=== PATIENT | female | born 1980 | race African-American/Black ===

== ENCOUNTER 2016-02-26 20:30 | Emergency (ER) | payer SELFPAY ==
[2016-02-26] MEDS ORDERED: Ketorolac Tromethamine 60 MG/2 ML VIAL ONE (20:53)
--- NOTE | 2016-02-26 21:24 | ERRECORD ---
[facility] EMERGENCY RECORD HPI TOOTHACHE (20:47 BPIC) CHIEF COMPLAINT: Patient presents for evaluation of toothache. HISTORIAN: History provided by patient. LOCATION: Symptoms are localized, most severe to Lower teeth on the left. QUALITY: Pain is dull in nature. SEVERITY: Maximum severity of symptoms severe, Currently symptoms are severe. TIME COURSE: Gradual onset of symptoms, Sx have been much worse in the past few days. ASSOCIATED WITH: Associated with facial pain, No associated facial swelling, No associated fever, No associated trauma. EXACERBATED BY: Patient's condition exacerbated by chewing. RELIEVED BY: Patient's condition relieved by nothing. ROS (20:47 BPIC) CONSTITUTIONAL: Negative constitutional review of systems. EYES: Negative eye review of systems. ENT: Negative ears, nose, throat review of systems. CARDIOVASCULAR: Negative cardiovascular review of systems. RESPIRATORY: Negative respiratory review of systems. GI: Negative gastrointestinal review of systems. MUSCULOSKELETAL: Negative musculoskeletal review of systems. SKIN: Negative skin review of systems. PSYCHIATRIC: Negative psychiatric review of systems. NOTES: All other ROS is negative except as listed in HPI. PAST MEDICAL HISTORY MEDICAL HISTORY: Flu vaccine not up to date, Pneumococcal vaccine not up to date, Tetanus immunization up to date. Reviewed on 01/29/16.VERIFIED -18-17. (21:08 MCRS) FEMALE SURGICAL HISTORY: TUBAL LIGATION. Reviewed on 01/29/16.VERIFIED -18-17. (21:08 MCRS) PSYCHIATRIC HISTORY: Notes: ANXIETY AND DEPRESSION 9OUT OF XANAX0, Notes: DENIES, Notes: VERIFIED08/14/15. Reviewed on 01/29/16.VERIFIED -18-17. (21:08 MCRS) SOCIAL HISTORY: Patient drinks socially, Patient denies drug use, Patient currently uses tobacco, smokes cigarettes, FORMER DRUG ABUSER; COCAINE Patient has smoked for 20 years, Patient smokes 1 pack per day, Patient drinks socially, once a month, Patient denies drug use, Patient currently uses tobacco, smokes cigarettes, Lives at home, with family. VERIFIED 11/04/15. Reviewed on 01/29/16.VERIFIED 1-18-17. (21:08 MCRS) FAMILY HISTORY: Family istory is not significant. (21:08 MCRS) NOTES: I have reviewed and agree with the PMH/PSxH/FamHx/SocHx obtained by the nurse. (20:47 BPIC) &a-1R&a+25V*p+0X*j8396S*c202B*c15G*c2P*p-0X&a-25V&a+1R Name: Carina Chamorro : 1980 F35 MedRec: [id number] AcctNum: [id number] Prepared: WedFeb 26, 2016 21:22 by Interface Page 1 of 3 pMD [facility] EMERGENCY RECORD KNOWN ALLERGIES traMADol: Reaction: Rash, Severity: Moderate, Source: Patient CURRENT MEDICATIONS (20:39 MCRS) ALPRAZolam: TABLET : Strength - 2 mg : ORAL Patient Dose: 2 mg Oral 2 times a day.Last Taken: 02/26/2016 1700. VITAL SIGNS (20:34 MCRS) VITAL SIGNS: BP: 111/62 (Sitting), Pulse: 68, Resp: 18, Temp: 96.9 (Tympanic), Pain: 9 (Sharp), O2 sat: 100 on Room Air, Time: 02/26/2016 20:34. PHYSICAL EXAM (20:47 BPIC) CONSTITUTIONAL: Vital signs reviewed, Patient afebrile, Pulse normal, Blood pressure normal, Respiratory rate normal, Patient appears non toxic, Patient appears pain free, Patient alert and oriented to person, place and time. HEAD: Head exam included findings of head atraumatic, normocephalic. EYES: Eye exam included findings of eyelids normal to inspection, Pupils equally round and reactive to light, Extraocular muscles intact. ENT: ENT exam normal, Nose exam normal, Pharynx exam normal, Uvula exam normal, Teeth with, dental caries, no fractures, no abscess. NECK: Neck exam included findings of normal range of motion, Trachea midline. RESPIRATORY CHEST: Respiratory exam included findings of no respiratory distress, Breath sounds clear, Chest exam included findings of chest movement symmetrical, Chest expansion equal. CARDIOVASCULAR: Cardiovascular exam included findings of heart rate regular rate and rhythm, Heart sounds normal. NEURO: Neuro exam findings include patient oriented to person, place and time, Speech normal. PSYCHIATRIC: Psychiatric exam included findings of patient oriented to person place and time, Normal affect. MEDICATION ADMINISTRATION SUMMARY Drug Name: ketorolac intramuscular, Dose Ordered: 60 mg, Route: Intramuscular, Status: Given, Time: 20:55 02/26/2016, Detailed record available in Medication Service section. DOCTOR NOTES (20:47 BPIC) TEXT: Pt with dental caries and evidence of poor oral care. Explained the importance of preventative dental care and the need for definitive treatment with a dentist. &a-1R&a+25V*p+0X*i8632J*c202B*c15G*c2P*p-0X&a-25V&a+1R Name: Carina Chamorro : 1980 [facility] MedRec: [id number] AcctNum: [id number] Prepared: WedFeb 26, 2016 21:22 by Interface Page 2 of 3 pMD [facility] EMERGENCY RECORD PROBLEM LIST No recorded problems DIAGNOSIS (20:48 BPIC) FINAL: PRIMARY: dental pain. PRESCRIPTION (20:48 BPIC) Pen-Vee K: TABLET : 500 mg : ORAL : Quantity: 500 Unit: mg Route: ORAL Schedule: 3 times a day Dispense: 21 May substitute. Refills: No Refills . NOTES: No Refills. DISPOSITION PATIENT: Disposition Type: Discharge, Disposition: *Discharge Home. (20:48 BPIC) Patient left the department. (21:11 MDEB) Laurent: BPIC=MD Todd, Jose Roberto MCRS=CHEMO Balderas, Oleg GALEANOEB=CHEMO Jones, Nellie &a-1R&a+25V*p+0X*i4995M*c202B*c15G*c2P*p-0X&a-25V&a+1R Name: Carina Chamorro : 1980 3 MedRec: [id number] AcctNum: [id number] Prepared: WedFeb 26, 2016 21:22 by Interface Page 3 of 3 pMD [facility]
--- NOTE | 2016-02-26 21:27 | PICIS ---
[facility] EMERGENCY RECORD TRIAGE (WedFeb 26, 2016 20:37 MCRS) TRIAGE NOTES: COMPLAINT OF TOOTH PAIN. (WedFeb 26, 2016 20:37 MCRS) PATIENT: NAME: Carina Chamorro, AGE: 35, GENDER: female, : Wed1980, TIME OF GREET: WedFeb 26, 2016 20:31, PREFERRED LANGUAGE: [place]ian, ETHNICITY: Not or , FALL RISK: NO, ECODE BILLING MAP: [facility], SSN: [id number], Zip Code: [address], KG WEIGHT: 62.60, PHONE: , , , PERSON ID: [id number], PCP: MD Soriano Olayemi. (WedFeb 26, 2016 20:37 MCRS) COMPLAINT: TOOTH PAINS. (WedFeb 26, 2016 20:37 MCRS) ADMISSION: URGENCY: 4 Non Urgent, ADMISSION SOURCE: Home, TRANSPORT: CAR, BED: ED -04. (WedFeb 26, 2016 20:37 MCRS) ASSESSMENT: Assessment: COMPLAINT OF TOOTH PAIN, Symptoms began 1 YEAR. (21:08 MCRS) PAIN: Patient complains of pain described as, sharp, Pain is constant, Aggravating factors:, Pain exacerbated by heat, Pain exacerbated by cold, No relieving factors. (21:08 MCRS) IMMUNIZATIONS: Notes: ALIEVE AT 1700. (21:08 MCRS) SIRS SCORING: Heart Rate 55-109 (0), Temp range 96.8-101.1 (0), respiratory rate 12-24 (0), Mental Status altered: no (0). (21:08 MCRS) PROVIDERS: TRIAGE NURSE: Oleg Balderas RN. (WedFeb 26, 2016 20:37 MCRS) VITAL SIGNS: BP 111/62, (Sitting), Pulse 68, Resp 18, Temp 96.9, (Tympanic), Pain 9, (Sharp), O2 Sat 100, on Room Air, Time 02/26/2016 20:34. (20:34 MCRS) PREVIOUS VISIT ALLERGIES: traMADol. (WedFeb 26, 2016 20:37 MCRS) traMADol. (21:08 MCRS) KNOWN ALLERGIES traMADol: Reaction: Rash, Severity: Moderate, Source: Patient CURRENT MEDICATIONS (20:39 MCRS) ALPRAZolam: TABLET : Strength - 2 mg : ORAL Patient Dose: 2 mg Oral 2 times a day.Last Taken: 02/26/2016 1700. VITAL SIGNS (20:34 MCRS) VITAL SIGNS: BP: 111/62 (Sitting), Pulse: 68, Resp: 18, Temp: 96.9 (Tympanic), Pain: 9 (Sharp), O2 sat: 100 on Room Air, Time: 02/26/2016 20:34. NURSING ASSESSMENT: DENTAL (21:08 MCRS) CONSTITUTIONAL: Patient arrives ambulatory, Gait steady, History obtained from patient, Patient appears comfortable, Patient cooperative, Patient alert, Oriented to person, place and time, Skin warm, Skin dry, Skin normal in color, Mucous membranes pink, Mucous &a-1R&a+25V*p+0X*x6494J*c202B*c15G*c2P*p-0X&a-25V&a+1R Name: Carina Chamorro : 1980 F35 MedRec: [id number] AcctNum: [id number] Prepared: WedFeb 26, 2016 21:21 by Interface Page 1 of 5 pMD [facility] EMERGENCY RECORD membranes moist, Patient is well-groomed, Patient complains of TOOTH PAIN. PAIN: sharp pain, to left lower back tooth (teeth), Onset of pain 1 YEAR AGO, on a scale 0-10 patient rates pain as 7, Pain exacerbated by, exposure to water, HOT OR COLD. NONVERBAL PAIN: Non Verbal pain assessment findings include: Non-verbal expressions of pain at rest (1), Result: 1. DENTAL: Dental assessment findings include mouth normal, Teeth abnormal:, color change to secondary tooth (teeth), Notes: GUMS APPEARS REDDENED AT TOOTH THAT HURTS - TOOTH APPEARS DETERIORATED ENAMEL. SAFETY: Side rails up, Cart/Stretcher in lowest position, Family at bedside, Call light within reach, Hospital ID band on. NURSING PROCEDURE: DISCHARGE NOTE (21:08 MDEB) DISCHARGE: Patient discharged to home, ambulating without assistance, driving self, unaccompanied, Summary of Care printed/ provided, Patient requested and was provided an electronic copy of Discharge Instructions, Transition record given to patient, Discharge instructions given to patient, Simple or moderate discharge teaching performed, MEDICATION, Prescriptions given and instructions on side effects given, Above person(s) verbalized understanding of discharge instructions and follow-up care, Patient treated and evaluated by physician. BELONGINGS: Belongings remain with patient, Valuables remain with patient. NOTES: Emotional support needed and given, Patient tolerated procedure well. SAFETY: Side rails up, Cart/Stretcher in lowest position, Family at bedside, Call light within reach, Hospital ID band on. MEDICATION ADMINISTRATION SUMMARY Drug Name: ketorolac intramuscular, Dose Ordered: 60 mg, Route: Intramuscular, Status: Given, Time: 20:55 02/26/2016, Detailed record available in Medication Service section. MEDICATION SERVICE (20:55 BPIC) ketorolac intramuscular: Order: ketorolac intramuscular (ketorolac tromethamine) - Dose: 60 mg : Intramuscular Ordered by: Jose Roberto Brooks MD Entered by: Jose Roberto Brooks MD WedFeb 26, 2016 20:47 , Acknowledged by: Nellie Jones RN WedFeb 26, 2016 20:52 Documented as given by: Nellie Jones RN WedFeb 26, 2016 20:55 Patient, Medication, Dose, Route and Time verified prior to administration. IM medication, Amount given: 60 MG, Medication administered to left hip, Correct patient, time, route, dose and medication confirmed prior to administration, Patient advised of actions and side-effects &a-1R&a+25V*p+0X*b7193I*c202B*c15G*c2P*p-0X&a-25V&a+1R Name: Carina Chamorro : 1980 F35 MedRec: [id number] AcctNum: [id number] Prepared: WedFeb 26, 2016 21:21 by Interface Page 2 of 5 pMD [facility] EMERGENCY RECORD prior to administration, Allergies confirmed and medications reviewed prior to administration, Patient in position of comfort, Side rails up, Cart in lowest position. HPI TOOTHACHE (20:47 BPIC) CHIEF COMPLAINT: Patient presents for evaluation of toothache. HISTORIAN: History provided by patient. LOCATION: Symptoms are localized, most severe to Lower teeth on the left. QUALITY: Pain is dull in nature. SEVERITY: Maximum severity of symptoms severe, Currently symptoms are severe. TIME COURSE: Gradual onset of symptoms, Sx have been much worse in the past few days. ASSOCIATED WITH: Associated with facial pain, No associated facial swelling, No associated fever, No associated trauma. EXACERBATED BY: Patient's condition exacerbated by chewing. RELIEVED BY: Patient's condition relieved by nothing. ROS (20:47 BPIC) CONSTITUTIONAL: Negative constitutional review of systems. EYES: Negative eye review of systems. ENT: Negative ears, nose, throat review of systems. CARDIOVASCULAR: Negative cardiovascular review of systems. RESPIRATORY: Negative respiratory review of systems. GI: Negative gastrointestinal review of systems. MUSCULOSKELETAL: Negative musculoskeletal review of systems. SKIN: Negative skin review of systems. PSYCHIATRIC: Negative psychiatric review of systems. NOTES: All other ROS is negative except as listed in HPI. PAST MEDICAL HISTORY MEDICAL HISTORY: Flu vaccine not up to date, Pneumococcal vaccine not up to date, Tetanus immunization up to date. Reviewed on 01/29/16.VERIFIED 02-26-16. (21:08 MCRS) FEMALE SURGICAL HISTORY: TUBAL LIGATION. Reviewed on 01/29/16.VERIFIED 02-25-. (21:08 MCRS) PSYCHIATRIC HISTORY: Notes: ANXIETY AND DEPRESSION 9OUT OF XANAX0, Notes: DENIES, Notes: VERIFIED08/14/15. Reviewed on 01/29/16.VERIFIED 02-25-. (21:08 MCRS) SOCIAL HISTORY: Patient drinks socially, Patient denies drug use, Patient currently uses tobacco, smokes cigarettes, FORMER DRUG ABUSER; COCAINE Patient has smoked for 20 years, Patient smokes 1 pack per day, Patient drinks socially, once a month, Patient denies drug use, Patient currently uses tobacco, smokes cigarettes, Lives at home, with family. VERIFIED 11/04/15. Reviewed on 01/29/16.VERIFIED 02-26-16. (21:08 MCRS) &a-1R&a+25V*p+0X*u0506F*c202B*c15G*c2P*p-0X&a-25V&a+1R Name: Carina Chamorro : 1980 F35 MedRec: [id number] AcctNum: [id number] Prepared: WedFeb 26, 2016 21:21 by Interface Page 3 of 5 pMD [facility] EMERGENCY RECORD FAMILY HISTORY: Family istory is not significant. (21:08 MCRS) NOTES: I have reviewed and agree with the PMH/PSxH/FamHx/SocHx obtained by the nurse. (20:47 BPIC) PHYSICAL EXAM (20:47 BPIC) CONSTITUTIONAL: Vital signs reviewed, Patient afebrile, Pulse normal, Blood pressure normal, Respiratory rate normal, Patient appears non toxic, Patient appears pain free, Patient alert and oriented to person, place and time. HEAD: Head exam included findings of head atraumatic, normocephalic. EYES: Eye exam included findings of eyelids normal to inspection, Pupils equally round and reactive to light, Extraocular muscles intact. ENT: ENT exam normal, Nose exam normal, Pharynx exam normal, Uvula exam normal, Teeth with, dental caries, no fractures, no abscess. NECK: Neck exam included findings of normal range of motion, Trachea midline. RESPIRATORY CHEST: Respiratory exam included findings of no respiratory distress, Breath sounds clear, Chest exam included findings of chest movement symmetrical, Chest expansion equal. CARDIOVASCULAR: Cardiovascular exam included findings of heart rate regular rate and rhythm, Heart sounds normal. NEURO: Neuro exam findings include patient oriented to person, place and time, Speech normal. PSYCHIATRIC: Psychiatric exam included findings of patient oriented to person place and time, Normal affect. EVENTS TRANSFER: Triage to Emergency Main ED -04. (20:37 MCRS) Removed from Emergency Main ED -04. (21:11 MDEB) DOCTOR NOTES (20:47 BPIC) TEXT: Pt with dental caries and evidence of poor oral care. Explained the importance of preventative dental care and the need for definitive treatment with a dentist. PROBLEM LIST No recorded problems DIAGNOSIS (20:48 BPIC) FINAL: PRIMARY: dental pain. DISPOSITION PATIENT: Disposition Type: Discharge, Disposition: *Discharge Home. (20:48 BPIC) Patient left the department. (21:11 MDEB) &a-1R&a+25V*p+0X*a0535R*c202B*c15G*c2P*p-0X&a-25V&a+1R Name: Carina Chamorro : 1980 F35 MedRec: [id number] AcctNum: [id number] Prepared: WedFeb 26, 2016 21:21 by Interface Page 4 of 5 pMD [facility] EMERGENCY RECORD INSTRUCTION (20:49 BPIC) DISCHARGE: DENTAL PAIN. FOLLOWUP: MD Christie, [facility], Family Practice, [address], [facility] [address], , [facility], Dental, Dentistry, [address] [address], , Barbara CAO, DAT, Dentistry, [address] [address], [phone]. SPECIAL: Thank you for [facility] for your care today! Please follow up with your doctor in the next 2-3 days. Return to the emergency department with any emergent or worsening concerns. God Bless you!. PRESCRIPTION (20:48 BPIC) Pen-Vee K: TABLET : 500 mg : ORAL : Quantity: 500 Unit: mg Route: ORAL Schedule: 3 times a day Dispense: 21 May substitute. Refills: No Refills . NOTES: No Refills. IMAGING (21:09 IMELDA) *DISCHARGE INSTRUCTIONS RECEIPT: Image captured from scanner. *SUPPLY CHARGE SHEET: Image captured from scanner. ADMIN (21:15 BPIC) DIGITAL SIGNATURE: MD Brooks Bryan. Laurent: BPIC=MD Brooks Bryan MCRS=CHEMO Balderas, Oleg MDEB=CHEMO Jones, Nellie &a-1R&a+25V*p+0X*r2887Z*c202B*c15G*c2P*p-0X&a-25V&a+1R Name: Carina Chamorro : 1980 F35 MedRec: [id number] AcctNum: [id number] Prepared: WedFeb 26, 2016 21:21 by Interface Page 5 of 5 pMD [facility]
== END 2016-02-26 21:08 | disposition home or self-care (01) ==
LOC: MADERS 20:30
DX: K08.89 Other specified disorders of teeth and supporting structures (principal); F41.9 Anxiety disorder, unspecified; F32.9 Major depressive disorder, single episode, unspecified; F17.210 Nicotine dependence, cigarettes, uncomplicated
CPT/HCPCS: 96372; J1885

== ENCOUNTER 2016-03-01 14:39 | Emergency (ER) | payer SELFPAY ==
--- NOTE | 2016-03-01 15:46 | ERRECORD ---
[facility] EMERGENCY RECORD HPI TOOTHACHE (15:09 LLDO) CHIEF COMPLAINT: Patient presents for evaluation of toothache, Patient presents for evaluation of was here on . given pcn but nothing for pain and is now asking for something to help get her to her 1300 tomorrow. HISTORIAN: History provided by patient. LOCATION: Symptoms are localized. QUALITY: Pain is dull in nature, described as aching. SEVERITY: Maximum severity of symptoms severe, Currently symptoms are moderate. TIME COURSE: Sudden onset of symptoms, There has been no change in the patient's symptoms over time. ASSOCIATED WITH: Associated with facial pain, Associated with facial swelling. EXACERBATED BY: Patient's condition exacerbated by chewing, Patient's condition exacerbated by cold fluids, Patient's condition exacerbated by hot fluids. RELIEVED BY: Patient's condition relieved by nothing. ROS CONSTITUTIONAL: Negative constitutional review of systems. (15:13 LLDO) EYES: Negative eye review of systems, Historian denies eye pain, denies eye redness, denies eye discharge. (15:14 LLDO) ENT: SEVERE DENTAL PAIN. (15:13 LLDO) MUSCULOSKELETAL: Negative musculoskeletal review of systems, Historian denies arthralgias, denies back pain, denies injury, denies myalgias, denies neck pain. (15:14 LLDO) SKIN: Negative skin review of systems, Historian denies cellulitis, denies rash, denies skin changes, denies skin lesions. (15:14 LLDO) NEUROLOGIC: Negative neurologic review of systems, Historian denies confusion, denies dizziness, denies focal weakness, denies mental status changes. (15:14 LLDO) HEMO/LYMPHATIC: Normal hematologic/lymphatic system review, Historian denies abnormal blood clotting, denies gum bleeding, denies petechiae. (15:14 LLDO) ALLERGIC/IMMUNOLOGIC: Normal allergy/immunologic system review, Historian denies eczema, denies environmental allergies, denies food allergies. (15:14 LLDO) PSYCHIATRIC: Negative psychiatric review of systems, Historian denies alcohol abuse, denies anxiety, denies depression, denies drug abuse, denies hallucinations. (15:14 LLDO) NOTES: All systems reviewed, negative except as described above. (15:13 LLDO) PAST MEDICAL HISTORY MEDICAL HISTORY: Flu vaccine not up to date, Pneumococcal vaccine not up to date, Tetanus immunization up to date. Reviewed on 01/29/16.VERIFIED 02-26-16. (14:49 CJEF) &a-1R&a+25V*p+0X*t2008X*c202B*c15G*c2P*p-0X&a-25V&a+1R Name: Carina Chamorro : 1980 F35 MedRec: [id number] AcctNum: [id number] Prepared: WedMar 02, 2016 05:43 by Interface Page 1 of 3 pMD [facility] EMERGENCY RECORD FEMALE SURGICAL HISTORY: TUBAL LIGATION. Reviewed on 01/29/16.VERIFIED 02-26-16. (14:49 CJEF) PSYCHIATRIC HISTORY: Notes: ANXIETY AND DEPRESSION 9OUT OF XANAX0, Notes: DENIES, Notes: VERIFIED08/14/15. Reviewed on 01/29/16.VERIFIED 02-26-16. (14:49 CJEF) SOCIAL HISTORY: Patient drinks socially, Patient denies drug use, Patient currently uses tobacco, smokes cigarettes, FORMER DRUG ABUSER; COCAINE Patient has smoked for 20 years, Patient smokes 1 pack per day, Patient drinks socially, once a month, Patient denies drug use, Patient currently uses tobacco, smokes cigarettes, Lives at home, with family. VERIFIED 11/04/15. Reviewed on 01/29/16.VERIFIED 02-26-16. (14:49 CJEF) FAMILY HISTORY: Family istory is not significant. (14:49 CJEF) NOTES: Nursing records reviewed, Agree with nursing records, Medication list reviewed. (15:14 LLDO) KNOWN ALLERGIES traMADol: Reaction: Rash, Severity: Moderate, Source: Patient CURRENT MEDICATIONS (14:48 CJEF) ALPRAZolam: TABLET : Strength - 2 mg : ORAL Patient Dose: 2 mg Oral 2 times a day. VITAL SIGNS (14:44 CJEF) VITAL SIGNS: BP: 132/76, Pulse: 72, Resp: 18, Temp: 98.6 (Oral), Pain: 8, O2 sat: 100 on Room Air, Time: 03/01/2016 14:44. PHYSICAL EXAM CONSTITUTIONAL: Vital signs reviewed, Patient afebrile, Pulse normal, Blood pressure normal, Respiratory rate normal, Patient appears non toxic, Patient appears in pain, in moderate pain distress, INTERMITTENTLY SEVERE, Patient alert and oriented to person, place and time. (15:13 LLDO) HEAD: Head exam normal, Head exam included findings of head atraumatic, normocephalic. (15:14 LLDO) EYES: Eye exam normal, Eye exam included findings of eyelids normal to inspection, Pupils equally round and reactive to light, Extraocular muscles intact. (15:14 LLDO) ENT: Teeth with, dental caries, fractures, abscess. (15:13 LLDO) NECK: Neck exam normal, Neck exam included findings of normal range of motion, Trachea midline, no meningeal signs, no tenderness. (15:14 LLDO) BACK: Back exam normal, Back exam included findings of normal inspection, range of motion normal. (15:14 LLDO) UPPER EXTREMITY: Upper extremity exam normal, Upper extremity exam included findings of inspection normal, Range of motion normal. &a-1R&a+25V*p+0X*c2307R*c202B*c15G*c2P*p-0X&a-25V&a+1R Name: Carina Chamorro : 1980 F35 MedRec: [id number] AcctNum: [id number] Prepared: WedMar 02, 2016 05:43 by Interface Page 2 of 3 pMD [facility] EMERGENCY RECORD (15:14 LLDO) LOWER EXTREMITY: Lower extremity exam normal, Lower extremity exam included findings of inspection normal, Range of motion normal. (15:14 LLDO) NEURO: Neuro exam normal, Neuro exam findings include patient oriented to person, place and time, Speech normal, Edsirae coma scale 15. (15:14 LLDO) SKIN: Skin exam normal, Skin exam included findings of skin warm, dry, and normal in color, no rash. (15:14 LLDO) PSYCHIATRIC: Psychiatric exam normal, Psychiatric exam included findings of patient oriented to person place and time, Normal affect. (15:14 LLDO) PROBLEM LIST No recorded problems DIAGNOSIS (15:16 LLDO) FINAL: PRIMARY: dental abscess. PRESCRIPTION (15:17 LLDO) Tylenol-Codeine #3: TABLET : 300 mg-30 mg : ORAL : Quantity: 1-2 Unit: tab(s) Route: ORAL Schedule: every 4 hours prn Dispense: 12 Unit: tab(s) May substitute. Refills: No Refills POTENTIAL ALLERGY REACTION: 'traMADol [tramadol/tramadol HCl]' Override Rationale: Reviewed with patient, pt says can safely take this med. NOTES: No Refills. DISPOSITION PATIENT: Disposition Type: Discharge, Disposition: *Discharge Home. (15:16 ANAYELI) Patient left the department. (15:38 SARA) Laurent: SARA=CHEMO Tan, Mira LLDO=MD Mei, Cornell &a-1R&a+25V*p+0X*n6406L*c202B*c15G*c2P*p-0X&a-25V&a+1R Name: ChamorroCarina : 1980 F35 MedRec: [id number] AcctNum: [id number] Prepared: WedMar 02, 2016 05:43 by Interface Page 3 of 3 pMD MTDD
--- NOTE | 2016-03-01 15:58 | PICIS ---
[facility] EMERGENCY RECORD TRIAGE (Amery Mar 01, 2016 14:48 CJEF) TRIAGE NOTES: PT REPORTS THAT SHE WAS SEEN HERE SEVERALS DAYS AGO FOR THE SAME SYMPTOMS AND WAS PRESCRIBED PCN. PT STATES THAT SHE FILLED A PRIOR PRESCRIPTION OF IBU 800MG FOR YET ANOTHER ER VISIT. PT REPORTS THAT SHE HAS A HOLE IN ONE OF HER TEETH ON THE LEFT BOTTOM. PT REPORTS PAIN TO THE LEFT LOWER JAW THAT STARTED APPROX 1 WEEK AGO. PT STATES THAT SHE HAS A DENTIST APPOINTMENT TOMORROW AT 1PM AND STATES THAT SHE IS WANTING A SHOT TO GET HER THROUGH THE NIGHT. (Amery Mar 01, 2016 14:48 CJEF) PATIENT: NAME: Carina Chamorro, AGE: 35, GENDER: female, : Wed1980, TIME OF GREET: WedMar 01, 2016 14:39, PREFERRED LANGUAGE: Mauritanian, ETHNICITY: Not or , FALL RISK: NO, ECODE BILLING MAP: [facility], SSN: [id number], Zip Code: [address], KG WEIGHT: 62.60, PHONE: , , , PERSON ID: [id number], PCP: MD Soriano Olayemi. (Amery Mar 01, 2016 14:48 CJEF) COMPLAINT: TOOTH PAIN. (Amery Mar 01, 2016 14:48 CJEF) ADMISSION: URGENCY: 4 Non Urgent, ADMISSION SOURCE: Home, TRANSPORT: Walk-in, BED: TRIAGE. (Amery Mar 01, 2016 14:48 CJEF) ASSESSMENT: Assessment: LEFT LOWER TOOTH PAIN. (14:49 CJEF) PAIN: Patient complains of pain described as, Location LEFT LOWER JAW. (14:49 CJEF) IMMUNIZATIONS: Flu vaccine not up to date, Tetanus immunization up to date, Pneumococcal vaccine not up to date. (14:49 CJEF) SIRS SCORING: Heart Rate 55-109 (0), Temp range 96.8-101.1 (0), respiratory rate 12-24 (0), Mental Status altered: no (0), Yes, Infection or Suspected Infection. (14:49 CJEF) SIRS NOTIFICATION: Yes, Infection or Suspected Infection. (14:49 CJEF) TRIAGE SCREENING: Patient denies suicidal ideation, Patient denies presence of domestic violence. (14:49 CJEF) PROVIDERS: TRIAGE NURSE: Mira Tan RN. (Amery Mar 01, 2016 14:48 CJEF) VITAL SIGNS: BP 132/76, Pulse 72, Resp 18, Temp 98.6, (Oral), Pain 8, O2 Sat 100, on Room Air, Time 03/01/2016 14:44. (14:44 CJEF) PREVIOUS VISIT ALLERGIES: traMADol. (Amery Mar 01, 2016 14:48 CJEF) traMADol. (14:49 CJEF) KNOWN ALLERGIES traMADol: Reaction: Rash, Severity: Moderate, Source: Patient CURRENT MEDICATIONS (14:48 CJEF) ALPRAZolam: TABLET : Strength - 2 mg : ORAL Patient Dose: 2 mg Oral 2 times a day. VITAL SIGNS (14:44 CJEF) VITAL SIGNS: BP: 132/76, Pulse: 72, Resp: 18, Temp: 98.6 (Oral), Pain: 8, O2 sat: 100 on Room Air, Time: 03/01/2016 14:44. &a-1R&a+25V*p+0X*g6726F*c202B*c15G*c2P*p-0X&a-25V&a+1R Name: Carina Chamorro : 1980 F35 MedRec: [id number] AcctNum: [id number] Prepared: [facility] Mar 02, 2016 05:49 by Interface Page [address] [facility] EMERGENCY RECORD NURSING ASSESSMENT: DENTAL (14:49 CJEF) CONSTITUTIONAL: Complex assessment performed, Patient arrives ambulatory, Gait steady, History obtained from patient, Patient appears comfortable, Patient cooperative, Patient alert, Oriented to person, place and time, Skin warm, Skin dry, Skin normal in color, Mucous membranes pink, Mucous membranes moist, Patient is well-groomed, PT REPORTS THAT SHE WAS SEEN HERE SEVERALS DAYS AGO FOR THE SAME SYMPTOMS AND WAS PRESCRIBED PCN. PT STATES THAT SHE FILLED A PRIOR PRESCRIPTION OF IBU 800MG FOR YET ANOTHER ER VISIT. PT REPORTS THAT SHE HAS A HOLE IN ONE OF HER TEETH ON THE LEFT BOTTOM. PT REPORTS PAIN TO THE LEFT LOWER JAW THAT STARTED APPROX 1 WEEK AGO. PT STATES THAT SHE HAS A DENTIST APPOINTMENT TOMORROW AT 1PM AND STATES THAT SHE IS WANTING A SHOT TO GET HER THROUGH THE NIGHT. PAIN: aching pain, to left lower back tooth (teeth), on a scale 0-10 patient rates pain as 8. DENTAL: Dental assessment findings include mouth normal, Teeth abnormal:, Notes: LEFT LOWER TOOTH PAIN AND LARGE HOLE IN TOOTH. NOTES: Patient tolerated procedure well. SAFETY: Side rails up, Cart/Stretcher in lowest position, Family at bedside, Call light within reach, Hospital ID band on. NURSING PROCEDURE: DISCHARGE NOTE (15:37 [facility]) DISCHARGE: Patient discharged to home, ambulating without assistance, driving self, accompanied by other family member, Summary of Care printed/ provided, Patient requested and was provided an electronic copy of Discharge Instructions, Transition record given to patient, Discharge instructions given to patient, Simple or moderate discharge teaching performed, Prescriptions given and instructions on side effects given, Medication reconciliation form given, Above person(s) verbalized understanding of discharge instructions and follow-up care, Patient treated and evaluated by physician. BELONGINGS: Belongings remain with patient. NOTES: Patient tolerated procedure well. SAFETY: Side rails up, Cart/Stretcher in lowest position, Family at bedside, Call light within reach, Hospital ID band on. HPI TOOTHACHE (15:09 LLDO) CHIEF COMPLAINT: Patient presents for evaluation of toothache, Patient presents for evaluation of was here on . given pcn but nothing for pain and is now asking for something to help get her to her 1300 tomorrow. HISTORIAN: History provided by patient. LOCATION: Symptoms are localized. QUALITY: Pain is dull in nature, described as aching. SEVERITY: Maximum severity of symptoms severe, Currently symptoms are moderate. TIME COURSE: Sudden onset of symptoms, There has been no change in the patient's symptoms over time. ASSOCIATED WITH: Associated &a-1R&a+25V*p+0X*f1030B*c202B*c15G*c2P*p-0X&a-25V&a+1R Name: Carina Chamorro : 1980 F35 MedRec: [id number] AcctNum: [id number] Prepared: WedMar 02, 2016 05:49 by Interface Page [address] [facility] EMERGENCY RECORD with facial pain, Associated with facial swelling. EXACERBATED BY: Patient's condition exacerbated by chewing, Patient's condition exacerbated by cold fluids, Patient's condition exacerbated by hot fluids. RELIEVED BY: Patient's condition relieved by nothing. ROS CONSTITUTIONAL: Negative constitutional review of systems. (15:13 LLDO) EYES: Negative eye review of systems, Historian denies eye pain, denies eye redness, denies eye discharge. (15:14 LLDO) ENT: SEVERE DENTAL PAIN. (15:13 LLDO) MUSCULOSKELETAL: Negative musculoskeletal review of systems, Historian denies arthralgias, denies back pain, denies injury, denies myalgias, denies neck pain. (15:14 LLDO) SKIN: Negative skin review of systems, Historian denies cellulitis, denies rash, denies skin changes, denies skin lesions. (15:14 LLDO) NEUROLOGIC: Negative neurologic review of systems, Historian denies confusion, denies dizziness, denies focal weakness, denies mental status changes. (15:14 LLDO) HEMO/LYMPHATIC: Normal hematologic/lymphatic system review, Historian denies abnormal blood clotting, denies gum bleeding, denies petechiae. (15:14 LLDO) ALLERGIC/IMMUNOLOGIC: Normal allergy/immunologic system review, Historian denies eczema, denies environmental allergies, denies food allergies. (15:14 LLDO) PSYCHIATRIC: Negative psychiatric review of systems, Historian denies alcohol abuse, denies anxiety, denies depression, denies drug abuse, denies hallucinations. (15:14 LLDO) NOTES: All systems reviewed, negative except as described above. (15:13 LLDO) PAST MEDICAL HISTORY MEDICAL HISTORY: Flu vaccine not up to date, Pneumococcal vaccine not up to date, Tetanus immunization up to date. Reviewed on 01/29/16.VERIFIED 02-26-16. (14:49 CJEF) FEMALE SURGICAL HISTORY: TUBAL LIGATION. Reviewed on 01/29/16.VERIFIED 02-25-. (14:49 CJEF) PSYCHIATRIC HISTORY: Notes: ANXIETY AND DEPRESSION 9OUT OF XANAX0, Notes: DENIES, Notes: VERIFIED08/14/15. Reviewed on 01/29/16.VERIFIED 02-26-16. (14:49 CJEF) SOCIAL HISTORY: Patient drinks socially, Patient denies drug use, Patient currently uses tobacco, smokes cigarettes, FORMER DRUG ABUSER; COCAINE Patient has smoked for 20 years, Patient smokes 1 pack per day, Patient drinks socially, once a month, Patient denies drug use, Patient currently uses tobacco, smokes cigarettes, Lives at home, with family. VERIFIED 11/04/15. Reviewed on 01/29/16.VERIFIED &a-1R&a+25V*p+0X*u6009Z*c202B*c15G*c2P*p-0X&a-25V&a+1R Name: Carina Chamorro : 1980 F35 MedRec: [id number] AcctNum: [id number] Prepared: WedMar 02, 2016 05:49 by Interface Page [address] [facility] EMERGENCY RECORD 02-26-16. (14:49 CJEF) FAMILY HISTORY: Family istory is not significant. (14:49 CJEF) NOTES: Nursing records reviewed, Agree with nursing records, Medication list reviewed. (15:14 LLDO) PHYSICAL EXAM CONSTITUTIONAL: Vital signs reviewed, Patient afebrile, Pulse normal, Blood pressure normal, Respiratory rate normal, Patient appears non toxic, Patient appears in pain, in moderate pain distress, INTERMITTENTLY SEVERE, Patient alert and oriented to person, place and time. (15:13 LLDO) HEAD: Head exam normal, Head exam included findings of head atraumatic, normocephalic. (15:14 LLDO) EYES: Eye exam normal, Eye exam included findings of eyelids normal to inspection, Pupils equally round and reactive to light, Extraocular muscles intact. (15:14 LLDO) ENT: Teeth with, dental caries, fractures, abscess. (15:13 LLDO) NECK: Neck exam normal, Neck exam included findings of normal range of motion, Trachea midline, no meningeal signs, no tenderness. (15:14 LLDO) BACK: Back exam normal, Back exam included findings of normal inspection, range of motion normal. (15:14 LLDO) UPPER EXTREMITY: Upper extremity exam normal, Upper extremity exam included findings of inspection normal, Range of motion normal. (15:14 LLDO) LOWER EXTREMITY: Lower extremity exam normal, Lower extremity exam included findings of inspection normal, Range of motion normal. (15:14 LLDO) NEURO: Neuro exam normal, Neuro exam findings include patient oriented to person, place and time, Speech normal, [place] coma scale 15. (15:14 LLDO) SKIN: Skin exam normal, Skin exam included findings of skin warm, dry, and normal in color, no rash. (15:14 LLDO) PSYCHIATRIC: Psychiatric exam normal, Psychiatric exam included findings of patient oriented to person place and time, Normal affect. (15:14 LLDO) EVENTS TRANSFER: Triage to Emergency Triage. (Sun Mar 01, 2016 14:48 CJEF) Emergency Triage to Main ED -03. (14:48 CJEF) Removed from Emergency Main ED -03. (15:38 CJEF) PROBLEM LIST No recorded problems DIAGNOSIS (15:16 LLDO) FINAL: PRIMARY: dental abscess. &a-1R&a+25V*p+0X*i1062Z*c202B*c15G*c2P*p-0X&a-25V&a+1R Name: Carina Chamorro : 1980 F35 MedRec: [id number] AcctNum: [id number] Prepared: WedMar 02, 2016 05:49 by Interface Page [address] [facility] EMERGENCY RECORD DISPOSITION PATIENT: Disposition Type: Discharge, Disposition: *Discharge Home. (15:16 LLDO) Patient left the department. (15:38 CJEF) INSTRUCTION (15:20 LLDO) DISCHARGE: DENTAL PAIN. FOLLOWUP: MD Christie, [facility], [facility], [address] [place] [address], , Follow up with Primary Care Physician in 1 day. SPECIAL: Follow-up with your dentist. PRESCRIPTION (15:17 LLDO) Tylenol-Codeine #3: TABLET : 300 mg-30 mg : ORAL : Quantity: 1-2 Unit: tab(s) Route: ORAL Schedule: every 4 hours prn Dispense: 12 Unit: tab(s) May substitute. Refills: No Refills POTENTIAL ALLERGY REACTION: 'traMADol [tramadol/tramadol HCl]' Override Rationale: Reviewed with patient, pt says can safely take this med. NOTES: No Refills. IMAGING *DISCHARGE INSTRUCTIONS RECEIPT: Image captured from scanner. (15:38 CJEF) *SUPPLY CHARGE SHEET: Image captured from scanner. (15:39 CJEF) ADMIN DIGITAL SIGNATURE: MD Hurley Lloyd. (15:18 LLDO) MD Hurley Lloyd. (WedMar 02, 2016 05:38 LLDO) Laurent: SARA=CHEMO Tan Cassie LLDO=MD Hurley Lloyd &a-1R&a+25V*p+0X*g7058M*c202B*c15G*c2P*p-0X&a-25V&a+1R Name: Carina Chamorro : 1980 F35 MedRec: [id number] AcctNum: [id number] Prepared: WedMar 02, 2016 05:49 by Interface Page [address] [facility] MEDICATION RECONCILIATION You were seen in the Emergency Department on: WedMar 01, 2016 KNOWN ALLERGIES traMADol: Reaction: Rash, Severity: Moderate, Source: Patient HOME MEDICATIONS CONTINUE PRESCRIBED ALPRAZolam : TABLET : Strength - 2 mg : ORAL Continue as prescribed Patient had been takin mg Oral 2 times a day. Notes from the emergency department Reviewed with patient PRESCRIPTIONS (1) &a-1R&a+25V*p+0X*i5703D*c202B*c15G*c2P*p-0X&a-25V&a+1R Name: Carina Chamorro : 1980 F35 MedRec: [id number] AcctNum: [id number] Prepared: WedMar 02, 2016 05:49 by Interface pMD JASWINDER
== END 2016-03-01 15:40 | disposition home or self-care (01) ==
LOC: MADERS 14:39
DX: K04.7 Periapical abscess without sinus (principal); F17.210 Nicotine dependence, cigarettes, uncomplicated; F41.9 Anxiety disorder, unspecified; F32.9 Major depressive disorder, single episode, unspecified
CPT/HCPCS: 99282

== ENCOUNTER 2016-06-04 10:57 | Emergency (ER) | payer SELFPAY ==
[2016-06-04] MEDS ORDERED: predniSONE 20 MG TAB ONE (11:18)
[2016-06-04] MEDS ORDERED: Cephalexin 500 MG CAP ONE (11:18)
[2016-06-04] MEDS ORDERED: Naproxen 500 MG TAB ONE (11:18)
== END 2016-06-04 11:25 | disposition home or self-care (01) ==
LOC: MADERS 10:57
DX: T63.441A Toxic effect of venom of bees, accidental (unintentional), initial encounter (principal); L29.9 Pruritus, unspecified; L08.9 Local infection of the skin and subcutaneous tissue, unspecified; F32.9 Major depressive disorder, single episode, unspecified; F41.9 Anxiety disorder, unspecified; F17.210 Nicotine dependence, cigarettes, uncomplicated
CPT/HCPCS: 99282; J7506

== ENCOUNTER 2016-10-18 12:07 | Emergency (ER) | payer MEDICAID, SELFPAY ==
[2016-10-18] MEDS ORDERED: Ondansetron HCl/PF 4 MG/2 ML Vial ONE (12:33)
[2016-10-18] MEDS ORDERED: Ketorolac Tromethamine 60 MG/2 ML VIAL ONE (12:33)
[2016-10-18] MEDS ORDERED: Ketorolac Tromethamine 30 MG/ML VIAL ONE (12:34)
[2016-10-18] MEDS ORDERED: Diphenoxylate HCl/Atropine Tablet ONE (13:07)
[2016-10-18 13:20] LABS: #Basophils 0.1 thou/uL (0.0-0.2); #Lymphocytes 2.7 thou/uL (1.20-3.40); #Monocytes 0.7 thou/uL (0.11-0.59); #Neutrophils 3.6 thou/uL (1.40-6.50); %Basophils 1.7 % (0.0-1.0); %Eosinophils 0.6 % (0.0-10.0); %Lymphocytes 37.4 % (21.0-51.0); %Monocytes 10.3 % (0.0-10.0); %Neutrophils 49.9 % (42.0-75.0); Hemoglobin 12.5 g/dL (12.0-16.0); Mean Corpuscular Hemoglobin 31.5 pg (27.0-31.0); Mean Corpuscular Volume 95.5 fl (81.0-99.0); Platelet Count 185 thou/uL (130-400); RBC Distribution Width 12.6 % (11.5-14.5); Red Blood Cell (RBC) Count 3.98 mill/uL (4.20-5.40); White Blood Cell (WBC) Count 7.2 thou/uL (4.8-10.8)
[2016-10-18 13:25] LABS: Bacteria/HPF 1+ HPF (None Seen); Bilirubin Negative (Negative); Blood, Urine Negative (Negative); Clarity Hazy (Clear); Glucose, Urine (Dipstick) Negative (Negative); Leukocyte Negative (Negative); Nitrite Negative (Negative); Protein, Urine (Dipstick) Negative (Neg-Trace); RBC/HPF 0-3 HPF (0-3); Specific Gravity, Urine 1.025 (1.005-1.030); Urobilinogen 0.2 mg/dL (0.2-1.0); WBC/HPF 0-3 HPF (0-3)
[2016-10-18 13:36] LABS: ALT (SGPT) 15 U/L (8-55); AST (SGOT) 15 U/L (5-34); Albumin 3.8 g/dL (3.5-5.0); Alkaline Phosphatase 65 U/L (40-150); Anion Gap 12 mmol/L (10-20); BUN (Urea Nitrogen) 8 mg/dL (7.0-18.7); Calc. Creatinine Clearance 0 mL/min (70-130); Calcium 8.7 mg/dL (7.8-10.44); Carbon Dioxide 21 mmol/L (22-29); Chloride 110 mmol/L (98-107); Estimated GFR-MDRD Greater than 90; Globulin 2.6 g/dL (2.4-3.5); Glucose 80 mg/dL (70-105); Lipase 17 U/L (8-78); Potassium 3.7 mmol/L (3.5-5.1); Protein, Total 6.4 g/dL (6.0-8.3); Sodium 139 mmol/L (136-145)
== END 2016-10-18 14:22 | disposition home or self-care (01) ==
LOC: MADERS 12:07
DX: R10.13 Epigastric pain (principal); R10.12 Left upper quadrant pain; R10.11 Right upper quadrant pain; R19.7 Diarrhea, unspecified; G43.909 Migraine, unspecified, not intractable, without status migrainosus; F32.9 Major depressive disorder, single episode, unspecified; F41.9 Anxiety disorder, unspecified; F17.210 Nicotine dependence, cigarettes, uncomplicated; Z79.899 Other long term (current) drug therapy
CPT/HCPCS: 36415; 80053; 81001; 82150; 83690; 85025; 87086; 96374; 96375; J1885; J2405

== ENCOUNTER 2017-03-28 20:01 | Emergency (ER) | payer MEDICAID | END 2017-03-28 20:45 | disposition home or self-care (01) | LOC: MADERS 20:01 | DX: A08.4 Viral intestinal infection, unspecified (principal); G43.909 Migraine, unspecified, not intractable, without status migrainosus; F41.9 Anxiety disorder, unspecified; F32.9 Major depressive disorder, single episode, unspecified; F17.210 Nicotine dependence, cigarettes, uncomplicated | CPT/HCPCS: 99283 ==

== ENCOUNTER 2017-07-07 08:15 | Emergency (ER) | payer SELFPAY ==
[2017-07-07] MEDS ORDERED: Lidocaine Viscous Sol 2% 15 ml UD Cup ONE (08:39)
[2017-07-07] MEDS ORDERED: Mag-Al Plus 1200 MG/1200 MG/120 MG/30 ML UDCUP ONE (08:39)
[2017-07-07 08:50] LABS: Bilirubin Negative (Negative); Blood, Urine Large (Negative); Clarity Clear (Clear); Glucose, Urine (Dipstick) Negative (Negative); Leukocyte Negative (Negative); Nitrite Negative (Negative); Protein, Urine (Dipstick) Trace mg/dL (Neg-Trace)
[2017-07-07 08:51] LABS: #Basophils 0.1 thou/uL (0.0-0.2); #Eosinphils 0.1 thou/uL (0.0-0.7); #Lymphocytes 2.4 thou/uL (1.20-3.40); #Monocytes 0.6 thou/uL (0.11-0.59); #Neutrophils 4.5 thou/uL (1.40-6.50); %Basophils 0.9 % (0.0-1.0); %Eosinophils 0.9 % (0.0-10.0); %Lymphocytes 30.7 % (21.0-51.0); %Monocytes 8.4 % (0.0-10.0); %Neutrophils 59.1 % (42.0-75.0); Hemoglobin 12.2 g/dL (12.0-16.0); Mean Corpuscular HGB CONC 31.9 g/dL (32.0-36.0); Mean Corpuscular Hemoglobin 29.6 pg (27.0-31.0); Mean Corpuscular Volume 92.8 fl (81.0-99.0); Mean Platelet Volume 6.9 fL (7.4-10.4); Platelet Count 212 thou/uL (130-400); RBC Distribution Width 12.1 % (11.5-14.5); White Blood Cell (WBC) Count 7.6 thou/uL (4.8-10.8)
[2017-07-07 08:55] LABS: Pregnancy Test - Urine (BHCG) Negative (Negative); Pregu Control Background? CLEAR/WHITE (CLR/WHITE); Pregu Control Bar Appear? YES (CONTROL BAR)
[2017-07-07 09:00] LABS: Bacteria/HPF 2+ HPF (None Seen); WBC/HPF 0-3 HPF (0-3)
[2017-07-07 09:09] LABS: AST (SGOT) 21 U/L (5-34); Albumin 3.9 g/dL (3.5-5.0); Alkaline Phosphatase 67 U/L (40-150); Anion Gap 12 mmol/L (10-20); BUN (Urea Nitrogen) 9 mg/dL (7.0-18.7); Bilirubin, Total 0.6 mg/dL (0.2-1.2); Calc. Creatinine Clearance 0 mL/min (70-130); Calcium 8.8 mg/dL (7.8-10.44); Carbon Dioxide 24 mmol/L (22-29); Chloride 110 mmol/L (98-107); Estimated GFR-MDRD Greater than 90; Globulin 2.3 g/dL (2.4-3.5); Glucose 99 mg/dL (70-105); Lipase 18 U/L (8-78); Potassium 4.1 mmol/L (3.5-5.1); Protein, Total 6.2 g/dL (6.0-8.3); Sodium 142 mmol/L (136-145)
[2017-07-07 09:34] LABS: ALT (SGPT) 16 U/L (8-55)
== END 2017-07-07 09:20 | disposition home or self-care (01) ==
LOC: MADERS 08:15
DX: K27.9 Peptic ulcer, site unspecified, unspecified as acute or chronic, without hemorrhage or perforation (principal); G43.909 Migraine, unspecified, not intractable, without status migrainosus; F41.9 Anxiety disorder, unspecified; F32.9 Major depressive disorder, single episode, unspecified; F17.210 Nicotine dependence, cigarettes, uncomplicated
CPT/HCPCS: 80053; 81003; 81015; 81025; 83690; 85025; 99283

== ENCOUNTER 2017-09-16 23:01 | Emergency (ER) | payer OTHER ==
[2017-09-16] MEDS ORDERED: Acetaminophen 500 MG TAB ONE ×2 (23:18→23:21)
== END 2017-09-16 23:26 | disposition home or self-care (01) ==
LOC: MADERS 23:01
DX: K02.9 Dental caries, unspecified (principal); F41.9 Anxiety disorder, unspecified; F32.9 Major depressive disorder, single episode, unspecified; F17.210 Nicotine dependence, cigarettes, uncomplicated; Z79.899 Other long term (current) drug therapy
CPT/HCPCS: 99282

== ENCOUNTER 2017-09-17 19:46 | Emergency (ER) | payer OTHER ==
[2017-09-17] MEDS ORDERED: Ketorolac Tromethamine 60 MG/2 ML VIAL ONE (20:04)
== END 2017-09-17 20:33 | disposition home or self-care (01) ==
LOC: MADERS 19:46
DX: K02.9 Dental caries, unspecified (principal); F17.210 Nicotine dependence, cigarettes, uncomplicated; F41.9 Anxiety disorder, unspecified; F32.9 Major depressive disorder, single episode, unspecified; G43.909 Migraine, unspecified, not intractable, without status migrainosus
CPT/HCPCS: 96372; J1885

== ENCOUNTER 2017-10-10 15:23 | Emergency (ER) | payer OTHER ==
[2017-10-10] MEDS ORDERED: Acetaminophen 500 MG TAB ONE (15:53)
[2017-10-10] MEDS ORDERED: Ketorolac Tromethamine 60 MG/2 ML VIAL ONE (15:53)
== END 2017-10-10 16:02 | disposition home or self-care (01) ==
LOC: MADERS 15:23
DX: K02.9 Dental caries, unspecified (principal); F17.210 Nicotine dependence, cigarettes, uncomplicated; G43.909 Migraine, unspecified, not intractable, without status migrainosus; Z79.899 Other long term (current) drug therapy
CPT/HCPCS: 96372; J1885

== ENCOUNTER 2021-01-18 08:00 | Emergency (ER) | payer OTHER, SELFPAY ==
[2021-01-18 18:18] LABS: SARS-CoV-2 PCR by NAA Not Detected (NotDetected)
== END 2021-01-18 09:39 | disposition home or self-care (01) ==
LOC: MADERS 08:00
DX: J20.9 Acute bronchitis, unspecified (principal); Z20.822 Contact with and (suspected) exposure to COVID-19; G43.909 Migraine, unspecified, not intractable, without status migrainosus; F17.200 Nicotine dependence, unspecified, uncomplicated
CPT/HCPCS: 87804; 99283; U0003; U0005

== ENCOUNTER 2023-12-30 18:34 | Emergency (ER) | payer MEDICAID, SELFPAY ==
[2023-12-30] MEDS ORDERED: Ketorolac Tromethamine 30 MG (1 mL) VIAL ONE (19:44)
[2023-12-30] MEDS ORDERED: diphenhydrAMINE 50 MG/ML VIAL ONE (19:44)
[2023-12-30] MEDS ORDERED: Prochlorperazine 10 MG/2 ML VIAL ONE (19:44)
[2023-12-30 20:19] LABS: Pregnancy Test - Urine (BHCG) Negative (Negative); Pregu Control Background? CLEAR/WHITE (CLR/WHITE); Pregu Control Bar Appear? YES (CONTROL BAR); Specific Gravity 1.025 (1.002-1.036)
== END 2023-12-30 21:12 | disposition home or self-care (01) ==
LOC: MADERS 18:34
DX: G43.909 Migraine, unspecified, not intractable, without status migrainosus (principal); F17.210 Nicotine dependence, cigarettes, uncomplicated
CPT/HCPCS: 81025; 96374; 96375; J0780; J1200; J1885